=== PATIENT | male | born 1960 | race Caucasian/White ===

== ENCOUNTER 2018-02-07 07:55 | Day surgery (SDC) | payer BC ==
--- NOTE | 2018-01-23 09:24 | HP ---
CC: Dr. Ariana Collado; Dr. Darryl Meade* ADMISSION HISTORY AND PHYSICAL: DATE OF ADMISSION: 02/07/18. ATTENDING SURGEON: Dr. Diaz Emmanuel* (dictated by CARLY Horn). CHIEF COMPLAINT: Left inguinal hernia. HISTORY OF PRESENT ILLNESS: This is a generally healthy 57-year-old male, who for the past year and half has noted the gradual development of a bulge in the left groin. In the past 2 to 3 months that has been associated with increased discomfort. 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 He has only had one episode of significant enough pain to require him to lie down and apply pressure to the area. He has otherwise not had anything to suggest incarceration or strangulation. He denies any GI or symptoms. He was seen in the office by Dr. Emmanuel, on 01/06/18. Exam at that time confirm the presence of a reducible, mildly tender left inguinal hernia. There was a positive cough impulse noted on the right. The patient is followed by Dr. Meade for BPH and was recommended against laparoscopic approach because of the potential future need for prostate surgery. Dr. Emmanuel has reviewed with the patient the indications for surgery, the risks, benefits, and alternatives. He understands the expected perioperative course and would like to proceed as scheduled with open repair of left inguinal hernia with mesh. PAST MEDICAL HISTORY: BPH. PAST SURGICAL HISTORY: [place] tooth extraction. CURRENT MEDICATIONS: 1. Aspirin 81 mg once daily (the patient is instructed to hold for 7 to 10 days preoperatively). 2. Alfuzosin 10 mg once daily. 3. Glucosamine once daily. 4. Ibuprofen 400 mg 1 to 2 times per month p.r.n. 5. Vitamin C 1000 mg once daily. 6. Vitamin D 1000 IU once daily. DRUG ALLERGIES: None known (LATEX causes a local reaction). FAMILY HISTORY: Negative for anesthesia problems, or bleeding disorders. He does have a brother, who had a DVT in a postoperative setting. SOCIAL HISTORY: The patient is . 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 He denies use of tobacco , alcohol, or other recreational drugs. REVIEW OF SYSTEMS: General: No recent constitutional symptoms or acute illnesses, weight has been stable. Cardiovascular: No chest pain, palpitations , history of hypertension or murmur. Respiratory: No history of asthma, chronic cough, or shortness of breath. GI: No problems reported. Colonoscopy done in 2012, which was normal with a 10 year followup recommended. : He is followed by Dr. Meade for BPH. He does have hesitancy and nocturia x2. He states that he does not have significant postvoid residual. Endocrine: No diabetes or thyroid dysfunction. PHYSICAL EXAMINATION GENERAL: Well-nourished, well-developed male, in no acute distress. VITAL SIGNS: Height 5 feet 8 inches, weight 165 pounds. Temperature 97.1, blood pressure 114/70, pulse 68. HEENT: Pupils equal and round, reactive. EOMs intact. No conjunctival pallor. Oropharynx: Teeth in good repair. No intraoral lesions. NECK: No lymphadenopathy, thyromegaly or masses. LUNGS: Clear to auscultation. No rales or wheezes. HEART: Regular rate and rhythm. No murmur noted. ABDOMEN: Soft, nontender to palpation. No palpable masses or organomegaly other than left inguinal hernia as noted per Dr. Emmanuel' exam. GENITALIA: Not examined. No problems reported. RECTAL: Not examined. No problems reported. BACK: No spinous process or CVA tenderness. EXTREMITIES: No edema. NEUROLOGICAL: Grossly intact. SKIN: Warm and dry. No suspicious rashes or lesions noted. IMPRESSION: Left inguinal hernia. PLAN: Open repair left inguinal hernia with mesh. CARLY HORN [id number]/CPS #: [id number] [facility]
[~2018-02-07 07:55] MED LIST: Buffered Lidocaine 0.9% SYRIN* 5 ML/SYR SYRINGE INTRADERM ONE; Famotidine IV* 10 MG/ML 2 ML (20 mg) IV ONE; Metoclopramide TAB* 10 MG PO ONE
[2018-02-07] MEDS ORDERED: ceFAZolin 2 GM PREMIX (*) 2 GM/50 ML BAG IVPB ONE (08:06)
[2018-02-07] MEDS ORDERED: Metoclopramide TAB* 10 MG ONE (08:06)
[2018-02-07] MEDS ORDERED: Famotidine IV* 10 MG/ML 2 ML (20 mg) ONE (08:06)
[2018-02-07] MEDS ORDERED: Lidocaine 2% PF * 5 ML VIAL ONE (08:26)
[2018-02-07] MEDS ORDERED: Ketorolac INJ* 30 MG/ML 1 ML VIAL ONE (08:26)
[2018-02-07] MEDS ORDERED: Ondansetron INJ* 2 MG/ML VIAL ONE (08:26)
[2018-02-07] MEDS ORDERED: fentaNYL* 50 MCG/ML 2 ML VIAL (100 MCG VIAL) ONE (08:26)
[2018-02-07] MEDS ORDERED: Propofol* 10 MG/ML 20 ML BTL IV PUSH ONE ×2 (08:26→10:12)
[2018-02-07] MEDS ORDERED: Dexamethasone IV* 4 MG/ML 1 ML (4 MG) ONE (08:26)
[2018-02-07] MEDS ORDERED: Midazolam* 1 MG/ML 10 ML VIAL (10 MG) ONE (08:26)
[2018-02-07] MEDS ORDERED: KETAMINE HCL* 50 MG/ML 10 ML VIAL ONE (08:26)
[2018-02-07] MEDS ORDERED: Lidocain 1% EPI 1:100,000 * 30 ML MDV ONE (08:55)
[2018-02-07] MEDS ORDERED: ROPIVACAINE 5 MG/ML 30 ML BTL (0.5%) ONE (08:55)
[2018-02-07] MEDS ORDERED: Naloxone* 0.4 MG/ML 1 ML VIAL IV PRN (09:25)
[2018-02-07] MEDS ORDERED: Ondansetron INJ* 2 MG/ML VIAL IV PRN (09:25)
[2018-02-07] MEDS ORDERED: oxyCODONE/Acetamin 5/325 MG* TAB PO PRN (09:25)
[2018-02-07] MEDS ORDERED: fentaNYL* 50 MCG/ML 2 ML VIAL (100 MCG VIAL) IV PRN (09:25)
--- NOTE | 2018-02-07 11:09 | BRIEFOPN ---
Brief Operative Note - Surgery Procedures: Brief Operative Note Preoperative Dx: Left inguinal hernia. Postoperative Dx: Same, indirect. Procedure: Open left inguinal hernia repair with mesh. Anesthesia: Local MAC. Surgeon: MD Lien. Assist: CARLY uQintana and ROHINI Durand. EBL: Less than 50. Fluids: 650 LR. Specimen: None. Findings: Dictated.
[2018-02-07 13:31] VITALS: BP 114/77
--- NOTE | 2018-02-08 21:59 | OP ---
CC: Dr. Ariana Collado; Dr. Darryl Meade * DATE OF OPERATION: 02/07/18 - [facility] DATE OF : 62. SURGEON: Diaz Emmanuel M.D. EXTERNAL RELATIONS DIRECTOR: CARLY Horn ANESTHESIOLOGIST: Dr. Phill French. ANESTHESIA: Local MAC. PRE-OP DIAGNOSIS: Left inguinal hernia. POST-OP DIAGNOSIS: Left inguinal hernia. OPERATIVE PROCEDURE: Open repair of left inguinal hernia with mesh. ESTIMATED BLOOD LOSS: Less than 50 mL. IV FLUIDS: 650 mL crystalloid. SPECIMEN: None. DRAIN: None. COMPLICATIONS: None. COUNTS: Instruments, needle, and sponge counts were correct. OPERATIVE FINDINGS: Direct and indirect inguinal hernias. DESCRIPTION OF PROCEDURE: The patient was brought to the operating room and placed on the table supine. Sequential compression devices were placed on both lower extremities. Intravenous sedation was administered. He was prepped and draped in usual sterile fashion. He received appropriate intravenous antibiotics and time-out was performed. Local anesthetic was infiltrated into the skin and soft tissue in the left groin prior to making the incision. An oblique incision was created approximately 5 cm long. Subcutaneous tissues were divided with cautery. Crossing veins was divided between clamps and ligated with 4-0 absorbable ties. External oblique was identified. Additional anesthetic was infiltrated beneath this and the oblique aponeurosis was opened along the line of its fibers through the superficial ring, reflecting the aponeurosis back on itself. Petr retractor was placed. The ilioinguinal nerve was identified, mobilized , and maintained in a medial position to preserve it. Then, the contents of the inguinal canal were isolated with a 0.25-inch Ulysses drain at the level of the pubic tubercle. There was an indirect inguinal hernia sac, which was dissected back beyond the deep ring. It was opened revealing no sliding component. The sac was closed by ligating with 2-0 Vicryl suture ligature. There was also weakness noted in the floor of the canal. Repair was performed with the Medtronic ProGrip mesh, which was positioned to cover the entire floor of the canal with good coverage of the direct space. The ilioinguinal nerve was preserved from harm and after the mesh had been positioned completely. The nerve was returned to the anatomic position and then the external oblique aponeurosis was then closed with 2-0 Vicryl and subcutaneous tissue was closed with 3-0 Vicryl and skin was closed with 4-0 Monocryl in subcuticular fashion. The Steri-strips were applied. The patient tolerated the procedure well and was awakened and transferred to recovery room in stable condition. [id number]/[facility] #: [id number] MTDD
== END 2018-02-07 13:20 | disposition home or self-care (01) ==
LOC: OR 07:55
PROVIDERS: ATTEND Surgery
DX: K40.90 Unilateral inguinal hernia, without obstruction or gangrene, not specified as recurrent (principal); N40.0 Benign prostatic hyperplasia without lower urinary tract symptoms
CPT/HCPCS: A9270-GY; J0690; J1100; J1885; J2250; J2405; J2704; J2795; J3010

== ENCOUNTER 2018-05-22 06:44 | Observation (INO) | payer BC ==
--- NOTE | 2018-05-16 04:25 | HP ---
CC: Dr. Ariana Collado * HISTORY AND PHYSICAL: DATE OF PLANNED ADMISSION AND SURGERY: 05/22/18 HISTORY OF PRESENT ILLNESS: Mr. Mendoza is a 57-year-old white male who is admitted with increasing obstructive voiding symptoms, prostate enlargement, for transurethral resection of the prostate. I have been following Mr. Mendoza for the last 6 years, because of a prostate nodule and symptoms of bladder outlet obstruction. In February 2012, because of a firm nodule in the right lobe of the prostate and the progression of the PSA from 1.8 to 2.5 over 1 year's period, he underwent transrectal ultrasound and multiple prostate biopsies. The prostate volume measured 50 cc. The biopsies were all benign showing no malignancy. The patient was having increasing obstructive voiding symptoms with nocturia about 2 to 3 times, day frequency, hesitancy, slow stream, and feeling of incomplete bladder emptying. He was started on alfuzosin with only partial improvement in his symptoms. Because of worsening voiding in particular having significant hesitancy, slow stream and feeling of incomplete emptying at night, he had a cystoscopy which showed a large obstructing median lobe and moderate-to -diffuse trabeculations consistent with a chronic bladder outlet obstruction. The enlarged median lobe explained the incomplete response to medical treatment. The patient then had urodynamic studies, which showed a high voiding detrusor pressure of about 100 cm of water with slow stream and incomplete bladder emptying with his residual around 100 cc. I had a long discussion with and Mrs. Mendoza regarding the option of treatment including continued alfuzosin, adding finasteride to decrease the prostate volume and the option of transurethral resection of the prostate. The patient was reluctant in going on finasteride because of the potential side effect related to sexual function. After discussing the other options of treatment and the less invasive forms besides TURP, the patient wanted to proceed with the TURP. PAST MEDICAL HISTORY AND SYSTEM REVIEW: He is in excellent health. PAST SURGICAL HISTORY: He had a left hernia repair by Dr. Emmanuel 4 months ago. He did very well and had no postoperative problems. He denies any cardiac or pulmonary diseases or symptoms. MEDICATIONS: He is on 1 baby aspirin per day. He is on no other chronic medications besides the alfuzosin. ALLERGIES: He denies any allergies to medications. FAMILY HISTORY: Negative for prostate carcinoma. SOCIAL HISTORY: He is a nonsmoker. PHYSICAL EXAMINATION GENERAL: Pleasant, healthy and fit-looking white male. VITAL SIGNS: Blood pressure 120/70. LUNGS: Clear. HEART: Regular and rhythmic. No murmurs. ABDOMEN: Soft. No masses, no tenderness and no CVA tenderness. EXTERNAL GENITALIA: Normal. He is circumcised. No penile lesions. Normal testes. No inguinal hernias. RECTAL EXAM: Showed an enlarged prostate with a firm right lobe, but no induration. IMPRESSION: 1. Bladder outlet obstruction with prostate enlargement and a prominent median lobe explaining the incomplete response to medical treatment. 2. Firm right lobe of the prostate with a normal PSA and negative prostate biopsies last year. PLAN: Plan is for transurethral resection of the prostate. I had a long discussion with Emanuel and his regarding that option. The other options including laser ablation and less invasive treatments than a TURP were discussed ; however, I would think that the response will not be as effective and as durable as TURP considering the pathology of the large median lobe. I discussed the potential complication of this procedure including infection, hematuria, very high incidence of retrograde ejaculation and low incidence of urinary incontinence. All their questions were answered. [id number]/CPS #: [id number] MTDAlfa
[~2018-05-22 06:44] MED LIST changes: -Famotidine IV* 10 MG/ML 2 ML (20 mg) IV ONE; -Metoclopramide TAB* 10 MG PO ONE
[2018-05-22] MEDS ORDERED: cefTRIAXone(*) 2 GM ADDV.VIAL IVPB ONE (07:21)
[2018-05-22] MEDS ORDERED: fentaNYL* 50 MCG/ML 2 ML VIAL (100 MCG VIAL) IV PRN (08:21)
[2018-05-22] MEDS ORDERED: Ondansetron INJ* 2 MG/ML VIAL IV PRN (08:21)
[2018-05-22] MEDS ORDERED: DiMENhydriNATE IV* 50 MG/ML VIAL IV PUSH PRN (08:21)
[2018-05-22] MEDS ORDERED: Naloxone* 0.4 MG/ML 1 ML VIAL IV PRN (08:21)
[2018-05-22] MEDS ORDERED: HYDROmorphone INJ1* 1 MG/ML SYRINGE IV PRN (08:21)
[2018-05-22] MEDS ORDERED: Midazolam* 1 MG/ML 5 ML VIAL (5 MG) ONE (08:36)
[2018-05-22] MEDS ORDERED: Bupivacaine-MPF SPINAL* 7.5 MG/ML - 2ML AMP ONE (08:41)
[2018-05-22] MEDS ORDERED: Lidocaine 1%* 5 ML VIAL ONE (08:46)
[2018-05-22] MEDS ORDERED: Lidocaine 1% INJ* 10 MG/ML 30 ML SDV ONE (08:46)
[2018-05-22] MEDS ORDERED: Dexamethasone IV* 4 MG/ML 1 ML (4 MG) ONE (08:53)
[2018-05-22] MEDS ORDERED: fentaNYL* 50 MCG/ML 2 ML VIAL (100 MCG VIAL) ONE (08:55)
[2018-05-22] MEDS ORDERED: Ondansetron INJ* 2 MG/ML VIAL ONE (09:50)
[2018-05-22] MEDS ORDERED: oxyCODONE/Acetamin 5/325 MG* TAB PO PRN (12:04)
[2018-05-22] MEDS ORDERED: Lidocaine 2% JELLY* 6 ML JELLY TOPICAL PRN (12:08)
[2018-05-22] MEDS: LR @ 40 MLS/HR IV SCH ×2 (12:22→18:15)
--- NOTE | 2018-05-22 13:51 | OP ---
CC: Dr. Collado * DATE OF OPERATION: 05/22/18 - ROOM #339 DATE OF : 62 SURGEON: Darryl Meade MD ANESTHESIOLOGIST: Dr. Fahad Mckeon. ANESTHESIA: Spinal. PRE-OP DIAGNOSES: 1. Benign prostatic hyperplasia. 2. Bladder outlet obstruction due to above. POST-OP DIAGNOSES: 1. Benign prostatic hyperplasia. 2. Bladder outlet obstruction due to above. OPERATIVE PROCEDURE: 1. Cystoscopy. 2. Transurethral resection of the prostate. INDICATION FOR PROCEDURE: Mr. Mendoza is a 57-year-old white male with a long history of progressive symptoms of bladder outlet obstruction. He has been maintained on alfuzosin with only partial improvement in his symptoms. Cystoscopy showed a large obstructing prostate mostly by a prominent median lobe. The urodynamic studies showed high voiding detrusor pressure consistent with bladder outlet obstruction. After discussing the various options of management, the patient decided to proceed with a TURP. PATHOLOGY AT CYSTOSCOPY: The penile and bulbar urethrae looked normal. The prostatic urethra measured 3 cm in length and there was significant degree of obstruction by trilobar hyperplasia of the prostate. Examination of the bladder showed moderate diffuse trabeculations. No suspicious bladder lesions seen. The ureteral orifices looked normal. The prostate adenoma was fairly vascular. DESCRIPTION OF PROCEDURE: After successful spinal anesthesia, the patient was placed in the lithotomy position and was prepped and draped for a cystoscopy. Cystoscopy was performed. The bladder was carefully inspected and the above findings were noted. The resectoscope was then introduced inside the bladder. Mannitol-sorbitol solution was used for irrigation and the inflow and outflow were adjusted to avoid overdistention of the bladder. The median lobe was resected first down to the identification of the bladder neck muscle fibers. The resectoscope was then positioned in the mid prostatic urethra and adenomatous prostate tissue was resected circumferentially allowing the visualization of the bladder neck. The bleeders were electrocoagulated as resection proceeded. The resectoscope was then positioned at the level of the verumontanum. The left lobe was resected next starting at 5 o'clock and proceeding anteriorly. The right lobe was resected next. During the resection, there was an open sinus at 11 o'clock distally and another at 2 o'clock. There was venous ooze from theopen sinuses that rendered the visualization limited. By that time, prostatic fossa was wide open. There was, however, still adenomatous tissue in the apical area, but it was not obstructing. All the arterial bleeders were electrocoagulated and controlled. The bladder was then thoroughly irrigated and all the prostate chips were evacuated. After a final inspection which showed open prostatic fossa, and intact verumontanum and external sphincter and intact ureteral orifices, no residual prostate chips and no arterial bleeders, the resectoscope was removed and a size 22-Lith[place]ian Devlin catheter was placed under gentle traction and taped to the right thigh of the patient. Irrigation yielded clear returns. The patient tolerated the procedure well and left the operating room in good condition. The blood loss was estimated at about 100 cc. The specimen was prostate chips. [id number]/[facility] #: [id number] MORELIA
[2018-05-22] MEDS: Oxybutynin TAB* 5 MG PO PRN ×3 (14:43→23:41)
[2018-05-22] MEDS: Acetaminophen TAB* 325 MG PO PRN (19:28)
[2018-05-23] MEDS: LR @ 40 MLS/HR IV SCH (01:03)
[2018-05-23] MEDS: Acetaminophen TAB* 325 MG PO PRN ×2 (04:40→07:54)
[2018-05-23] MEDS: Oxybutynin TAB* 5 MG PO PRN ×2 (04:40→07:42)
[2018-05-23] MEDS ORDERED: cefTRIAXone(*) 1 GM in NS 0.9% 50 ML* 50 ML IVPB ONE (07:30)
[2018-05-23] MEDS ORDERED: cefTRIAXone(*) 1 GM ADVAN/BAG IV ONE (07:30)
[2018-05-23 08:01] VITALS: BP 120/69
[2018-05-23] MEDS ORDERED: GLUCOSAMINE CHONDROITIN PO SCH (09:00)
[2018-05-23] MEDS ORDERED: NETTLE LEAF PO SCH (09:00)
[2018-05-23] MEDS ORDERED: Ascorbic Acid TAB* 500 MG PO SCH (09:00)
[2018-05-23] MEDS ORDERED: Cholecalciferol TAB* 1000 UNITS PO SCH (09:00)
--- NOTE | 2018-05-23 12:31 | DS ---
DISCHARGE SUMMARY: DATE OF ADMISSION: 05/22/18 DATE OF DISCHARGE: 05/23/18 OPERATION: Transurethral resection of the prostate on 05/22/18. FINAL DIAGNOSES: 1. Bladder outlet obstruction. 2. Benign prostatic hyperplasia. HISTORY: Mr. Mendoza is a 57-year-old white male who had long history of prostate enlargement, bladder outlet obstruction, and elevated PSA. He had prostate biopsies last year, which were benign. He had been maintained on alfuzosin for the bladder outlet obstruction; however, he continued to be significantly symptomatic with very slow stream, hesitancy, nocturia and day frequency, and incomplete bladder emptying. He was worked up with the cystoscopy, which showed a large obstructing prostate and a prominent median lobe. Urodynamic studies showed high voiding detrusor pressure consistent with bladder outlet obstruction and good detrusor function. The patient did not want to go on finasteride because of potential side effects. After discussing the various options of management, he decided to proceed with TURP. PAST MEDICAL HISTORY AND SYSTEM REVIEW: He is in excellent health. He had an inguinal hernia repair earlier this year. MEDICATIONS: He is on no other chronic medications. ALLERGIES: He has no allergies to medications. SOCIAL HISTORY: He is a nonsmoker. PREOPERATIVE PHYSICAL EXAMINATION: All normal. Rectal exam showed an enlarged , but benign feeling prostate. LABORATORY DATA: Preoperative lab work normal and urine culture was negative. COURSE IN HOSPITAL: The patient was admitted the morning of his surgery. He underwent an uncomplicated transurethral resection of the prostate under spinal anesthesia. He was kept overnight for observation and by the morning, his urine was clear. His vital signs were normal and was making good urine output. The patient is discharged home on catheter drainage and on VESIcare for bladder spasms. He will be seen in the office 1 week postoperatively for Devlin catheter removal. Instructions were given for followup care. Pathology on the resected prostate tissue was benign. [id number]/[facility] #: [id number] [facility]Al[facility]
== END 2018-05-23 10:00 | disposition home or self-care (01) ==
LOC: OR 06:44 → SSU 11:30
PROVIDERS: ADMIT Urology; ATTEND Urology
DX: N40.1 Benign prostatic hyperplasia with lower urinary tract symptoms (principal); Z79.82 Long term (current) use of aspirin
CPT/HCPCS: 88305; 96372; A9270-GY; G0378; J0690; J0696; J1100; J2250; J2405; J3010